=== PATIENT | male | born 1965 | race Caucasian/White ===

== ENCOUNTER 2020-11-29 09:35 | Inpatient (IN) | payer MEDICAID ==
[~2020-11-29] VITALS: Ht 157.5 cm; Wt 102.1 kg
[2020-11-29] MEDS ORDERED: ONDANSETRON HCL 4MG/2ML INJ IV STA (10:11)
[2020-11-29] MEDS ORDERED: MORPHINE SULFATE 4 MG/ML CPJ (NOT FOR IM USE) IV STA (10:11)
[2020-11-29] MEDS ORDERED: NITROGLYCERIN OINT 1GM/INCH UDPKT TD ONE (10:15)
[2020-11-29] MEDS ORDERED: ASPIRIN 81MG TABLET PO ONE (10:15)
[2020-11-29 10:18] LABS: BASOPHILS % 0.3 % (0.0-2.0); EOSINOPHILS % 1.4 % (0.0-5.0); HEMATOCRIT. 39.5 % (42.0-52.0); HEMOGLOBIN. 14.1 g/dL (14.0-18.0); LYMPHOCYTES % 18.3 % (20.0-50.0); MEAN CORPUSCULAR HEMOGLOBIN 29.6 pg (28.0-32.0); MEAN CORPUSCULAR VOLUME 82.7 fL (80.0-94.0); MEAN PLATELET VOLUME 7.9 fl (7.4-10.4); MONOCYTES % 4.4 % (2.0-8.0); NEUTROPHILS % 75.6 % (40.0-76.0); PLATELET 252 x1000/uL (130-400); RED BLOOD CELL COUNT 4.77 mill/uL (4.7-6.1); RED CELL DISTRIBUTION WIDTH 12.1 % (11.6-14.6)
[2020-11-29 10:19] LABS: CHLORIDE 103 mEq/L (98-107)
[2020-11-29 10:23] LABS: ETHANOL BLOOD < 10 mg/dL
[2020-11-29] MEDS ORDERED: MORPHINE SULFATE 2 MG/ML CPJ (NOT FOR IM USE) IV NR (10:30)
[2020-11-29 12:23] LABS: *AMPHETAMINES SCREEN URINE NEGATIVE (NEGATIVE); *BENZODIAZEPINES SCREEN URINE NEGATIVE (NEGATIVE); *COCAINE SCREEN URINE NEGATIVE (NEGATIVE); CANNABINOID URINE SCREEN NEGATIVE (NEGATIVE); METHADONE URINE SCREEN NEGATIVE (NEGATIVE); OPIATES URINE SCREEN NEGATIVE (NEGATIVE); PHENCYCLIDINE URINE SCREEN NEGATIVE (NEGATIVE)
[2020-11-29 12:24] LABS: *BARBITURATES SCREEN URINE NEGATIVE (NEGATIVE)
[2020-11-29] MEDS ORDERED: CLONIDINE 0.1MG TABLET PO PRN (15:45)
[2020-11-29] MEDS ORDERED: KETOROLAC 15MG/ML VIAL IV PRN (15:45)
[2020-11-29] MEDS ORDERED: ONDANSETRON HCL 4MG/2ML INJ IV PRN (15:45)
[2020-11-29] MEDS ORDERED: ACETAMINOPHEN 325MG TABLET PO PRN ×2 (15:45)
[2020-11-29] MEDS ORDERED: IPRATROPIUM/ALBUTEROL 0.5-3(2.5)MG/3ML NEB NEB PRN (15:45)
[2020-11-29] MEDS ORDERED: NITROGLYCERIN 0.4MG TABLET SL SL PRN (15:45)
[2020-11-29] MEDS ORDERED: MAGNESIUM/ALUMINUM HYDROXIDE/SIMETHICONE 30ML UDC PO PRN (15:45)
[2020-11-29] MEDS ORDERED: DOCUSATE SODIUM 100MG CAPSULE PO PRN (15:45)
[2020-11-29] MEDS ORDERED: GUAIFENESIN 200MG/10ML SUGAR FREE UDC PO PRN (15:45)
[2020-11-29] MEDS: ENOXAPARIN 40MG/0.4ML SYR SUBCUT SCH (17:12)
[2020-11-29] MEDS ORDERED: ZOLPIDEM TARTRATE 5MG TABLET PO PRN (21:00)
[2020-11-29] MEDS: FAMOTIDINE 20MG TABLET PO SCH (21:07)
[2020-11-29] MEDS: METOPROLOL TARTRATE 25MG TABLET PO SCH (21:08)
[2020-11-29 22:52] LABS: CREATINE KINASE 71 IU/L (39-308)
[2020-11-29 22:53] LABS: CREATINE KINASE MB FRACTION < 1.0 ng/mL (0.5-3.6)
[2020-11-30 05:11] LABS: BASOPHILS % 0.7 % (0.0-2.0); EOSINOPHILS % 2.8 % (0.0-5.0); HEMATOCRIT. 39.4 % (42.0-52.0); HEMOGLOBIN. 13.7 g/dL (14.0-18.0); LYMPHOCYTES % 33.7 % (20.0-50.0); MEAN CORPUSCULAR HEMOGLOBIN 29.4 pg (28.0-32.0); MEAN CORPUSCULAR VOLUME 84.5 fL (80.0-94.0); MEAN PLATELET VOLUME 7.8 fl (7.4-10.4); MONOCYTES % 7.7 % (2.0-8.0); NEUTROPHILS % 55.1 % (40.0-76.0); PLATELET 255 x1000/uL (130-400); RED BLOOD CELL COUNT 4.67 mill/uL (4.7-6.1); RED CELL DISTRIBUTION WIDTH 12.7 % (11.6-14.6)
[2020-11-30 05:19] LABS: CHLORIDE 104 mEq/L (98-107)
[2020-11-30 05:26] LABS: PHOSPHORUS 4.2 mg/dL (2.5-4.9)
[2020-11-30 05:27] LABS: LDL CHOLESTEROL 107 mg/dL (5-100)
[2020-11-30 05:28] LABS: CREATINE KINASE 60 IU/L (39-308)
[2020-11-30 05:29] LABS: HDL CHOLESTEROL 36 mg/dL (40-59)
[2020-11-30 05:33] LABS: CREATINE KINASE MB FRACTION < 1.0 ng/mL (0.5-3.6)
[2020-11-30] MEDS: FAMOTIDINE 20MG TABLET PO SCH ×2 (08:25→22:12)
[2020-11-30] MEDS: METOPROLOL TARTRATE 25MG TABLET PO SCH ×2 (08:25→22:12)
[2020-11-30] MEDS ORDERED: ASPIRIN 325MG EC TABLET PO SCH (09:00)
[2020-11-30 09:35] VITALS: BP 141/79
[2020-11-30 10:53] VITALS: BP 141/79
[2020-11-30] MEDS ORDERED: GEMF600T90 MT (11:18)
[2020-11-30] MEDS ORDERED: AMLO5TAB88 MT (11:18)
[2020-11-30] MEDS ORDERED: ACET-2708 MT (11:18)
[2020-11-30] MEDS ORDERED: FISH1CAP34 MT (11:20)
[2020-11-30] MEDS ORDERED: TAP5 MT (11:20)
[2020-11-30] MEDS ORDERED: TRIA1TAB94 MT (11:22)
[2020-11-30 12:00] VITALS: BP 136/82
[2020-11-30] MEDS: ENOXAPARIN 40MG/0.4ML SYR SUBCUT SCH (15:38)
[2020-11-30 16:00] VITALS: BP 149/95
[2020-11-30] MEDS: AMLODIPINE 5MG TABLET PO SCH (18:34)
[2020-11-30 20:00] VITALS: BP 156/87
[2020-11-30] MEDS ORDERED: ATORVASTATIN CALCIUM 40MG TABLET PO SCH (21:00)
[2020-12-01] VITALS: BP 141/79
[2020-12-01 04:00] VITALS: BP 141/91
[2020-12-01] MEDS ORDERED: FENTANYL CITRATE/PF 50MCG/ML 2ML VIAL ONE (07:59)
[2020-12-01] MEDS ORDERED: MIDAZOLAM HCL 2 MG/2 ML VIAL ONE (07:59)
[2020-12-01] MEDS ORDERED: IODIXANOL 320MG/ML 100 ML BOTTLE IV ONE (08:00)
[2020-12-01] MEDS ORDERED: LIDOCAINE HCL 1% 20ML VIAL (Pyxis) INJ ONE (08:00)
[2020-12-01] MEDS ORDERED: VERAPAMIL HCL 2.5 MG/1 ML 2ML VIAL IV ONE (08:05)
[2020-12-01] MEDS ORDERED: NITROGLYCERIN 50MCG/ML 10ML VIAL (CATH LAB) IV ONE (08:32)
[2020-12-01] MEDS ORDERED: HEPARIN SODIUM 1,000 UNIT/1ML VIAL IV ONE (08:32)
[2020-12-01] MEDS ORDERED: NICARDIPINE 100MCG/ML 10ML VIAL (CATH LAB) IV ONE (08:32)
[2020-12-01] MEDS ORDERED: ENOXAPARIN 30MG/0.3ML SYR SUBCUT SCH (09:00)
[2020-12-01] MEDS ORDERED: ATROPINE SULFATE 1MG/10ML SYR IV PRN (09:00)
[2020-12-01] MEDS ORDERED: ACETAMINOPHEN 325MG TABLET PO PRN (09:00)
[2020-12-01] MEDS ORDERED: ASPIRIN 81MG EC TABLET PO SCH (09:00)
[2020-12-01 11:56] VITALS: BP 20/144
[2020-12-01 12:00] VITALS: BP 144/87
[2020-12-01] MEDS: METOPROLOL TARTRATE 25MG TABLET PO SCH (14:05)
[2020-12-01] MEDS: FAMOTIDINE 20MG TABLET PO SCH (14:06)
[2020-12-01] MEDS: AMLODIPINE 5MG TABLET PO SCH (14:06)
== END 2020-12-01 15:45 | disposition home or self-care (01) | DRG 191 ==
LOC: ER 09:35 → EDBEDREQ 10:25 → MICUSO 12:48 → EDBEDREQ 13:06 → 8WST 11-30 07:32
PROVIDERS: ADMIT Internal Medicine; ATTEND Internal Medicine
PROC: B211YZZ Fluoroscopy of Multiple Coronary Arteries using Other Contrast (ICD-10-PCS; principal; 2020-12-01)
PROC: 4A023N7 Measurement of Cardiac Sampling and Pressure, Left Heart, Percutaneous Approach (ICD-10-PCS; 2020-12-01)
PROC: B54MZZA Ultrasonography of Right Upper Extremity Veins, Guidance (ICD-10-PCS; 2020-12-01)
DX: I25.110 Atherosclerotic heart disease of native coronary artery with unstable angina pectoris (principal); I42.9 Cardiomyopathy, unspecified; E11.9 Type 2 diabetes mellitus without complications; E66.9 Obesity, unspecified; I10 Essential (primary) hypertension; E78.5 Hyperlipidemia, unspecified; Z20.822 Contact with and (suspected) exposure to COVID-19; I16.0 Hypertensive urgency; Z68.41 Body mass index [BMI] 40.0-44.9, adult
CPT/HCPCS: 36415; 71045; 80053; 80061; 80305; 80320; 82550; 82553; 83036; 83735; 83880; 84100; 84484; 85025; 87426; 93005; 93306; 93458; 93970; 99291; C1769; C1887; C1893; J1644; J1650; J2250; J2270; J2405; J3010; J3490; Q9967; G0480

== ENCOUNTER 2022-05-21 00:39 | Emergency (ER) | payer MEDICAID ==
[~2022-05-21] VITALS: Ht 165.1 cm; Wt 99.0 kg
[~2022-05-21 00:39] MED LIST: ACET-2708 MT; AMLO5TAB88 MT; CYCL10TA21 MT; FISH1CAP34 MT; GEMF600T90 MT; IBUP-2029 MT; METH-371 MT; TRIA1TAB94 MT
[2022-05-21 01:26] VITALS: BP 168/90
== END 2022-05-21 05:48 | disposition left against medical advice (07) ==
LOC: ER 00:39
DX: R10.9 Unspecified abdominal pain (principal); Z53.21 Procedure and treatment not carried out due to patient leaving prior to being seen by health care provider
CPT/HCPCS: 99281